=== PATIENT | female | born 1975 | race Caucasian/White ===

== ENCOUNTER 2021-09-01 13:25 | Outpatient (CLI) | payer BC | END 2021-09-01 13:26 | disposition home or self-care (01) | LOC: TBSIIMAG 13:25 | PROVIDERS: ATTEND Otolaryngology Plastic Surgery within the Head & Neck | DX: H90.5 Unspecified sensorineural hearing loss (principal) | CPT/HCPCS: 70553 ==

== ENCOUNTER 2024-01-18 10:48 | Emergency (ER) | payer BC ==
[2024-01-18 11:36] LABS: #Basophils Less than 0.03 10x3/uL (0.0-0.2); %Basophils 0.2 % (0.0-1.0); %Eosinophils 0.7 % (0.0-10.0); %Lymphocytes 19.3 % (21.0-51.0); %Monocytes 2.4 % (0.0-10.0); %Neutrophils 76.8 % (42.0-75.0); Hematocrit 49.4 % (36.0-47.0); Hemoglobin 16.4 g/dL (12.0-16.0); Mean Corpuscular HGB CONC 33.2 g/dL (32.0-36.0); Mean Corpuscular Hemoglobin 31.2 pg (27.0-31.0); Mean Corpuscular Volume 94.1 fL (78.0-98.0); Mean Platelet Volume 10.1 fL (7.4-10.4); Platelet Count 228 10x3/uL (130-400); RBC Distribution Width 12.4 % (11.5-14.5); Red Blood Cell (RBC) Count 5.25 mill/uL (4.20-5.40)
[2024-01-18] MEDS ORDERED: methylPREDNISolone Sod Succ/PF 125 MG/2 ML VIAL ONE (11:48)
[2024-01-18] MEDS ORDERED: LORazepam 2 MG/ML SYR.(CARPUJECT) ONE (11:52)
[2024-01-18 12:47] LABS: BHCG - Serum Negative (NEGATIVE); Pregs Control Background? CLEAR/WHITE (CLR/WHITE); Pregs Control Bar Appear? YES (CONTROL BAR)
[2024-01-18 12:49] LABS: ALT (SGPT) 18 U/L (8-55); AST (SGOT) 15 U/L (5-34); Albumin 3.7 g/dL (3.5-5.0); Alkaline Phosphatase 51 U/L (40-110); Anion Gap 16 mmol/L (10-20); BUN (Urea Nitrogen) 10 mg/dL (7.0-18.7); Bilirubin, Total 0.5 mg/dL (0.2-1.2); Calc. Creatinine Clearance 0 mL/min (70-130); Calcium 9.3 mg/dL (7.8-10.44); Carbon Dioxide 16 mmol/L (22-29); Chloride 109 mmol/L (98-107); Estimated GFR 108; Globulin 3.2 g/dL (2.4-3.5); Glucose 107 mg/dL (70-105); Protein, Total 6.9 g/dL (6.0-8.3); Sodium 137 mmol/L (136-145)
[2024-01-18] MEDS ORDERED: Prochlorperazine Maleate 5 MG TAB ONE (13:40)
== END 2024-01-18 14:46 | disposition home or self-care (01) ==
LOC: ERS 10:48
DX: R42 Dizziness and giddiness (principal)
CPT/HCPCS: 36415; 70450; 80053; 83735; 84703; 85025; 93005; 96374; 96375; J2060; J2930; Q0164

== ENCOUNTER 2024-02-11 09:28 | Outpatient (CLI) | payer BC | END 2024-02-11 09:29 | disposition home or self-care (01) | LOC: MRI 09:28 | PROVIDERS: ATTEND Otolaryngology | DX: R42 Dizziness and giddiness (principal) | CPT/HCPCS: 70553; A9579 ==